=== PATIENT | male | born 1965 | race Caucasian/White ===

== ENCOUNTER → 2018-03-24 | Outpatient (REF) | payer BC ==
[2018-03-24 16:09] LABS: BLOOD UREA NITROGEN 16 MG/DL (7-18); CALCIUM LEVEL 8.4 MG/DL (8.5-10.1); CARBON DIOXIDE LEVEL 30 MEQ/L (21-32); CHLORIDE LEVEL 101 MEQ/L (98-107); CHOLESTEROL LEVEL 222 MG/DL (<200); CHOLESTEROL RISK RATIO 8.538 (<5); CREATININE FOR GFR 0.68 MG/DL (0.70-1.30); FREE T4 0.98 NG/DL (0.76-1.46); GLOMERULAR FILTRATION RATE > 60.0 (>56); GLUCOSE, FASTING 89 MG/DL (70-100); HDL CHOLESTEROL 26 MG/DL (>40); NON-HDL-C 196 MG/DL; POTASSIUM SERUM 4.3 MEQ/L (3.5-5.1); SODIUM LEVEL 137 MEQ/L (136-145); THYROID STIMULATING HORMONE 0.589 uIU/ML (0.358-3.740); TRIGLYCERIDES LEVEL 428 MG/DL (<150)
[2018-03-24 16:11] LABS: FOLATE 19.1 NG/ML; VITAMIN B12 LEVEL 969 PG/ML
[2018-03-24 16:14] LABS: HEMOGLOBIN A1c 5.9 %
[2018-03-24 16:50] LABS: HEPATITIS C VIRUS ABY INDEX 0.1 INDEX (<0.8)
== END ==
LOC: M SFHCPLAZ 14:18
DX: R63.1 Polydipsia (principal); F17.200 Nicotine dependence, unspecified, uncomplicated; Z11.59 Encounter for screening for other viral diseases; R53.83 Other fatigue; G62.9 Polyneuropathy, unspecified

== ENCOUNTER → 2018-05-16 | Outpatient (CLI) | payer BC ==
--- NOTE | 2018-05-16 08:03 | REP ---
Abdominal aorta ultrasound: Abdominal Aortic Measurements are as follows: Proximal the 2.7 cm AP 3.2 cm TRV Renal Artery Level 2.5 cm AP 3.0 cm TRV Mid Aorta 4.5 cm AP 4.7 cm TRV Distal Aorta 3.1 cm AP 3.0 cm TRV R Iliac Artery 1.2 cm AP 1.1 cm TRV L Iliac Artery 1.3 cm AP 1.4 cm TRV Comparison is the abdomen and pelvis CT dated 08/01/2008. There is an infrarenal abdominal aortic aneurysm measuring 4.5 x 4.7 cm. On the comparison CT. This measured 3.5 x 3.7 cm. The distal aorta above the bifurcation is ectatic measuring 3.1 x 3.0 cm. The bifurcation is obscured from bowel gas and likely atheromatous calcification. The right and left iliac arteries are ectatic. Impression: Infrarenal abdominal aortic aneurysm as described. Ectasia of the distal aorta and of the right and left iliac arteries. The bifurcation is obscured as described. Electronically Signed by Janes Dooley MD 05/16/2018 07:54 A
== END ==
LOC: M RAD 06:42
PROVIDERS: ATTEND Internal Medicine
DX: I77.811 Abdominal aortic ectasia (principal); I71.4 Abdominal aortic aneurysm, without rupture; F17.200 Nicotine dependence, unspecified, uncomplicated

== ENCOUNTER → 2018-06-13 | Outpatient (CLI) | payer BC ==
--- NOTE | 2018-06-13 15:53 | PFTRPT ---
Site: [facility], [address] [place], [place], [address] ID: [id number] Name: ANTONELLA MURRAY Visit Date: 06/13/2018 Second ID: [id number] Referring Doctor: Roxanne North DO Reviewing Doctor: Jose A Murrell MD Intelligence Manager: Johan CROUCH RRT Age: 52 : 1965 Sex: Male Race: Height: 74.00 Inches Weight: 155.00 Lbs BSA: 1.95 Order IDs: [id number] Requested Test(s): <RESP-PFT.DLCO> Diagnosis: F17.200 test appear to be valid, although the ATS standard for "end of test" was not met. Pt was given four puffs of albuterol for postbronchodilator. Review Status: Not Reviewed Pre-Bronch Post-Bronch Pred Actual %Pred Actual %Chng SPIROMETRY FVC (L) 5.63 4.94 87 5.24 6 FEV1 (L) 4.31 2.84 65 3.00 5 FEV1/FVC (%) 77 58 74 57 FEF 25% (L/sec) 7.30 4.18 57 4.45 6 FEF 50% (L/sec) 4.04 1.72 42 1.90 10 FEF 75% (L/sec) 1.49 0.49 33 0.63 28 FEF 25-75% (L/sec) 3.63 1.40 38 1.53 9 FEF Max (L/sec) 10.51 4.84 46 6.52 34 FIVC (L) 4.84 5.22 7 FIF 50% (L/sec) 4.86 5.96 122 4.71 -20 FIF Max (L/sec) 6.81 5.00 -26 MVV (L/min) 161 108 67 Expiratory Time (sec) 8.10 8.73 7 Back Extrap Vol (L) 0.12 0.08 -31 Time To FEFmax (sec) 0.140 0.092 -34 LUNG VOLUMES SVC (L) 5.43 5.12 94 IC (L) 3.71 3.16 85 ERV (L) 1.72 1.96 114 TGV (L) 4.07 5.58 136 RV (Pleth) (L) 2.35 3.61 153 TLC (Pleth) (L) 7.78 8.73 112 RV/TLC (Pleth) (%) 31 41 133 DIFFUSION DLCOunc (ml/min/mmHg) 31.34 14.71 46 DL/VA (ml/min/mmHg/L) 4.03 2.04 50 VA (L) 7.78 7.23 92 BHT (sec) 9.95 IVC (L) 4.93 TLC (SB) (L) 7.38 AIRWAYS RESISTANCE Raw (cmH2O/L/s) 1.45 1.45 100 Gaw (L/s/cmH2O) 1.03 0.69 67 sRaw (cmH2O*s) 4.76 8.72 183 sGaw (1/cmH2O*s) 0.20 0.12 57
== END ==
LOC: M CARPUL 15:13
PROVIDERS: ATTEND Internal Medicine
DX: F17.200 Nicotine dependence, unspecified, uncomplicated (principal)

== ENCOUNTER → 2018-07-13 | Outpatient (REF) | payer BC ==
[2018-07-13 16:34] LABS: C REACTIVE PROTEIN QUANTITATIV 1.43 MG/DL (0.00-0.30); CPK CREATINE PHOSPHOKINASE 703 U/L (39-308); LDH LACTATE DEHYDROGENASE 337 U/L (87-241); TOTAL PROTEIN 7.7 GM/DL (6.4-8.2)
[2018-07-18 09:41] LABS: ALBUMIN % 49.4 % (55.8-66.1); ALPHA-1-GLOBULIN % 5.2 % (2.9-4.9); ALPHA-2-GLOBULINS 0.94 GM/DL (0.42-0.99); ALPHA-2-GLOBULINS % 12.2 % (7.1-11.8); BETA-1-GLOBULINS 0.48 GM/DL (0.28-0.60); BETA-1-GLOBULINS % 6.2 % (4.7-7.2); BETA-2-GLOBULINS 0.51 GM/DL (0.19-0.55); BETA-2-GLOBULINS % 6.6 % (3.2-6.5); GAMMA GLOBULIN % 20.4 % (11.1-18.8); GAMMA GLOBULINS 1.57 GM/DL (0.65-1.58)
== END ==
LOC: M SFHCPLAZ 13:38
DX: R29.898 Other symptoms and signs involving the musculoskeletal system (principal)

== ENCOUNTER → 2018-11-23 | Outpatient (REF) | payer BC | LOC: M SFHCPLAZ 14:33 | DX: R29.898 Other symptoms and signs involving the musculoskeletal system (principal); E78.2 Mixed hyperlipidemia ==

== ENCOUNTER → 2018-11-28 | Outpatient (CLI) | payer BC ==
--- NOTE | 2018-11-28 18:37 | REP ---
Clinical: Abdominal aortic aneurysm. Comparison: 05/16/2018. Technique: Real time damico scale ultrasound examination using curved array transducer. Findings: Atherosclerotic changes are appreciated and a mid to distal abdominal aortic aneurysm measures approximately 5.0 x 5.5 cm transverse diameter and 9.5 cm in craniocaudal length extending from the level of the renal arteries through the bifurcation to common iliac arteries. Mural thrombus is noted with a residual patent lumen measuring 2.8 x 4.2 cm maximal diameter. Proximal aorta: 2.5 x 4.2 cm Aorta and renal arteries: 3.4 x 3.3 cm Mid aorta: 5.0 x 5.5 cm Distal aorta: 2.9 x 5.4 cm Right common iliac artery: 2.9 x 3.8 cm Left common iliac artery: 2.1 x 1.9 cm Impression: Infrarenal abdominal aortic aneurysm Electronically Signed by Mulugeta Brown MD 11/28/2018 06:28 P
== END ==
LOC: M RAD 09:08
PROVIDERS: ATTEND Internal Medicine
DX: I71.4 Abdominal aortic aneurysm, without rupture (principal)

== ENCOUNTER → 2018-11-30 | Outpatient (REF) | payer BC | LOC: M SFHCPLAZ 15:51 | DX: R29.898 Other symptoms and signs involving the musculoskeletal system (principal); Z53.9 Procedure and treatment not carried out, unspecified reason ==

== ENCOUNTER → 2018-12-04 | Outpatient (CLI) | payer BC | LOC: M RAD 16:22 | PROVIDERS: ATTEND Internal Medicine | DX: R29.898 Other symptoms and signs involving the musculoskeletal system (principal); Z53.9 Procedure and treatment not carried out, unspecified reason ==

== ENCOUNTER → 2018-12-18 | Outpatient (CLI) | payer BC ==
[2018-12-18 16:09] LABS: ALBUMIN 3.4 GM/DL (3.2-5.2); ALT/SGPT 55 U/L (12-78); BILIRUBIN,TOTAL 0.3 MG/DL (0.2-1.0); BLOOD UREA NITROGEN 20 MG/DL (7-18); C REACTIVE PROTEIN QUANTITATIV 0.62 MG/DL (0.00-0.30); CALCIUM LEVEL 8.6 MG/DL (8.5-10.1); CARBON DIOXIDE LEVEL 30 MEQ/L (21-32); CHLORIDE LEVEL 105 MEQ/L (98-107); CHOLESTEROL LEVEL 160 MG/DL (<200); CHOLESTEROL RISK RATIO 6.153 (<5); CPK CREATINE PHOSPHOKINASE 653 U/L (39-308); CREATININE FOR GFR 0.71 MG/DL (0.70-1.30); GLOMERULAR FILTRATION RATE > 60.0 (>56); GLUCOSE, FASTING 96 MG/DL (70-100); HDL CHOLESTEROL 26 MG/DL (>40); LDH LACTATE DEHYDROGENASE 266 U/L (87-241); LDL CHOLESTEROL 60 MG/DL (<100); NON-HDL-C 134 MG/DL; SODIUM LEVEL 140 MEQ/L (136-145); TOTAL PROTEIN 7.3 GM/DL (6.4-8.2); TRIGLYCERIDES LEVEL 370 MG/DL (<150)
[2018-12-21 00:06] LABS: ALDOLASE 16.3 U/L (3.3-10.3); ANA (HEP2) Negative (.); ANTI JO-1 ANTIBODIES <0.2 AI (0.0-0.9); RNP ANTIBODY < 0.2 AI (0.0-0.9); SMITHS ANTIBODY < 0.2 AI (0.0-0.9)
== END ==
LOC: M LAB 15:16
PROVIDERS: ATTEND Internal Medicine
DX: R29.898 Other symptoms and signs involving the musculoskeletal system (principal)

== ENCOUNTER → 2018-12-18 | Outpatient (REF) | payer BC | LOC: M SFHCPLAZ 14:59 | DX: R29.898 Other symptoms and signs involving the musculoskeletal system (principal); F17.200 Nicotine dependence, unspecified, uncomplicated; E78.2 Mixed hyperlipidemia; I71.4 Abdominal aortic aneurysm, without rupture; J43.9 Emphysema, unspecified; R73.03 Prediabetes ==

== ENCOUNTER → 2018-12-20 | Outpatient (CLI) | payer BC ==
[~2018-12-20] MED LIST: ISOVUE-370 76% 100ML VIAL (Q9967) As Ordered ONE
--- NOTE | 2018-12-21 07:04 | REP ---
Clinical: Evaluate for abdominal aortic aneurysm. Technique: Axial angiographic images from the lung bases to the pubic symphysis using 100 ml Isovue 370 intravenous contrast material with images obtained in arterial phase of enhancement. Coronal and sagittal re-formations along with 3-D volume rendered re-formations of the abdominal aorta and major branch vessels. Comparison: 08/01/2008. Findings: There is a moderately thrombosed infrarenal abdominal aortic aneurysm with intimal calcifications and mural thrombus extending into the right common iliac artery terminating at the bifurcation to internal/external iliac arteries. Aneurysm measures 4.6 cm maximal diameter and originates approximately 3.5 cm below the inferior-most right renal artery. Patent aortic lumen measures approximately 3.3 cm maximal diameter. Aneurysm extends into the right common iliac artery measures approximately 3.1 cm maximal diameter and again appears partially thrombosed with patent lumen measuring approximately 1.9 cm maximal diameter. Aneurysmal length in total measures approximately 15.5 cm with the aortic component measuring 8.8 cm to the bifurcation followed by approximately 7 cm length aneurysm into the right iliac artery. There is suggestion for a subtle dissection along the right side of the patent aortic lumen originating approximately L3-4 level. 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 The celiac axis, superior mesenteric artery, solitary left and dual right renal arteries appear normal and without stenosis or atherosclerotic disease at their origins. The inferior mesenteric artery originates at the level of the aortic aneurysm but appears patent and normal. Atherosclerotic changes extend into the bilateral common iliac arteries and through the bilateral common femoral arteries to the level of the popliteal arteries without evidence for occlusion but small subtle areas of narrowing cannot be excluded. Three-vessel runoff is noted to the level of the mid calf bilaterally and is poorly evaluated distal to this level. Liver, spleen, pancreas, gallbladder, bilateral adrenal glands and kidneys appear normal in arterial phase enhancement. 9 mm cortical based right renal cyst identified. The enteric system is without obstruction or acute inflammatory process. Normal terminal ileum and appendix identified in the right lower quadrant. Sigmoid diverticula noted without acute diverticulitis. Pelvis demonstrates normal bladder and age appropriate prostate/seminal vesicles. Musculoskeletal structures are intact. Lung bases demonstrate chronic-appearing fiber atelectatic changes along with dependent changes. 10 mm noncalcified nodule inseparable from the right minor fissure (image 9). Impression: 1. Infrarenal partially thrombosed abdominal aortic aneurysm extending into the right common iliac artery as detailed above. There are suggestions for a subtle dissection within the aortic portion of the patent lumen. 2. A separate focal aneurysm is also identified involving the right common femoral artery as detailed above. 3. Moderate atherosclerotic changes extend into the bilateral lower extremities through the superficial femoral arteries and popliteal artery. 4. 10 mm noncalcified nodular density in the right middle lobe inseparable from the minor fissure. No prior examination is available for comparison. Consider chest CT follow-up in 3-6 months. The Electronically Signed by Mulugeta Brown MD 12/21/2018 06:56 A
== END ==
LOC: M RAD 16:23
DX: R29.898 Other symptoms and signs involving the musculoskeletal system (principal); I71.4 Abdominal aortic aneurysm, without rupture; I74.09 Other arterial embolism and thrombosis of abdominal aorta; I72.4 Aneurysm of artery of lower extremity; I70.203 Unspecified atherosclerosis of native arteries of extremities, bilateral legs; R91.1 Solitary pulmonary nodule
CPT/HCPCS: 75635; Q9967

== ENCOUNTER 2019-04-11 07:49 | Emergency (ER) | payer BC ==
[~2019-04-11] VITALS: Ht 188 cm; Wt 73.8 kg
[2019-04-11] MEDS ORDERED: SILD50TA2 (07:59)
[2019-04-11] MEDS ORDERED: ASPI81CH33 PO (07:59)
[2019-04-11] MEDS ORDERED: ROSU40TA4 PO (07:59)
[2019-04-11] MEDS ORDERED: METF-791 PO (07:59)
[2019-04-11] MEDS: IPRATROPIUM 0.5MG/ALBUTEROL 2.5MG INH SOL UD 3ML (DUONEB)(J7620) NEB PRN ×2 (09:34→09:55)
[2019-04-11 09:37] LABS: INFLUENZA A AMPLIFICATION NEGATIVE (NEGATIVE); INFLUENZA B AMPLIFICATION NEGATIVE (NEGATIVE)
[2019-04-11] MEDS ORDERED: methylPREDNISolone INJ 125 MG/2 ML VIAL (J2930) IV ONE (09:45)
[2019-04-11 09:47] LABS: BASO % 0.2 % (0.0-1.0); EOS # 0.4 10^3/uL (0.0-0.5); EOS % 4.6 % (0.0-3.0); HEMATOCRIT 40.3 % (42.0-52.0); HEMOGLOBIN 13.5 g/dl (13.5-17.5); LYMPH # 2.2 10^3/uL (1.5-5.0); LYMPH % 24.5 % (24.0-44.0); MEAN CORPUSCULAR HEMOGLOBIN 29.5 pg (27.0-33.0); MEAN CORPUSCULAR HGB CONC 33.5 g/dl (32.0-36.5); MONO # 0.7 10^3/uL (0.0-0.8); MONO % 7.4 % (0.0-5.0); NEUTROPHILS # 5.5 10^3/uL (1.5-8.5); NEUTROPHILS % 63.1 % (36.0-66.0); PLATELET COUNT, AUTOMATED 218 10^3/uL (150-450); RED BLOOD COUNT 4.58 10^6/uL (4.30-6.10); WHITE BLOOD COUNT 8.8 10^3/uL (4.0-10.0)
[2019-04-11 10:11] LABS: BLOOD UREA NITROGEN 13 MG/DL (7-18); CALCIUM LEVEL 8.2 MG/DL (8.5-10.1); CARBON DIOXIDE LEVEL 25 MEQ/L (21-32); CHLORIDE LEVEL 105 MEQ/L (98-107); CK-MB VALUE MASS 3.7 NG/ML (<3.6); CPK CREATINE PHOSPHOKINASE 242 U/L (39-308); CREATININE FOR GFR 0.59 MG/DL (0.70-1.30); GLOMERULAR FILTRATION RATE > 60.0 (>56); GLUCOSE, FASTING 88 MG/DL (70-100); MB/CK RELATIVE INDEX 1.53 (< OR =4); NT-PRO BNP 46 PG/ML (<125); POTASSIUM SERUM 3.8 MEQ/L (3.5-5.1); SODIUM LEVEL 137 MEQ/L (136-145); TROPONIN I < 0.02 NG/ML (< 0.10)
--- NOTE | 2019-04-11 10:13 | REP ---
CHEST: Two views. There is no evidence of acute infiltrate. No pleural effusion is seen. The heart is normal in size. The mediastinal silhouette is unremarkable. The visualized osseous structures are intact. IMPRESSION: No acute pulmonary disease. Electronically Signed by Janes Tidwell MD 04/11/2019 03:56 P
[2019-04-11] MEDS ORDERED: predniSONE 20 MG TAB PO ONE (10:15)
[2019-04-11] MEDS ORDERED: AZIT-12 PO (10:58)
[2019-04-11] MEDS ORDERED: PROAAER10 INH (10:58)
[2019-04-11] MEDS ORDERED: PRED20TA PO (10:58)
[2019-04-11 11:07] VITALS: BP 112/79
== END 2019-04-11 11:09 | disposition home or self-care (01) ==
LOC: M ED 07:49
DX: J44.1 Chronic obstructive pulmonary disease with (acute) exacerbation (principal); E11.9 Type 2 diabetes mellitus without complications; E78.5 Hyperlipidemia, unspecified; K21.9 Gastro-esophageal reflux disease without esophagitis; Z86.79 Personal history of other diseases of the circulatory system; F17.200 Nicotine dependence, unspecified, uncomplicated; Z79.82 Long term (current) use of aspirin; Z79.84 Long term (current) use of oral hypoglycemic drugs; Z79.899 Other long term (current) drug therapy

== ENCOUNTER → 2019-07-10 | Outpatient (CLI) | payer BC ==
[~2019-07-10] MED LIST changes: +ASPI81CH33 PO; +AZIT-12 PO; -ISOVUE-370 76% 100ML VIAL (Q9967) As Ordered ONE; +METF-838 PO; +PRED20TA PO; +PROAAER10 INH; +ROSU40TA4 PO; +SILD50TA2
[2019-07-10 12:00] LABS: BLOOD UREA NITROGEN 19 MG/DL (7-18); CREATININE FOR GFR 0.71 MG/DL (0.70-1.30); GLOMERULAR FILTRATION RATE > 60.0 (>56)
== END ==
LOC: M LAB 08:52
PROVIDERS: ATTEND Physician Assistant
DX: Z01.818 Encounter for other preprocedural examination (principal); I71.4 Abdominal aortic aneurysm, without rupture

== ENCOUNTER → 2019-07-16 | Outpatient (CLI) | payer BC ==
[~2019-07-16] MED LIST changes: +ISOVUE-370 76% 100ML VIAL As Ordered ONE
--- NOTE | 2019-07-17 07:34 | REP ---
Clinical: History of abdominal aortic aneurysm. Technique: Axial angiographic images from the thoracic inlet to the upper abdomen using 100 ml Isovue 370 intravenous contrast material (followed by CT angiography of the abdomen and pelvis). Coronal and sagittal re-formations and MIP reconstructions obtained. Findings: The thoracic aorta including branch vessels through the aortic arch are normal in appearance and caliber. There is no evidence for aneurysm or dissection. No periaortic inflammatory changes are appreciated. Heart and pericardium appear normal. Pulmonary vasculature appear normal. Lung [place] demonstrate mild/moderate scattered subpleural fibrosis without consolidation. There is a 11 mm noncalcified perifissural nodule at the confluence of the major and minor fissure (images 68 - 69). No effusion. No pneumothorax. Tracheobronchial tree is patent. Mediastinal and right hilar lymph nodes measuring up to approximately 13 mm are nonspecific. Surrounding musculoskeletal structures are intact without acute focal osseous abnormality. Impression: 1. Normal thoracic aorta and branch vessels without aneurysm or dissection. 2. 11 mm noncalcified nodule at the confluence of the major and minor fissure. No prior examinations are available for comparison. Pulmonary consultation is recommended. Short-term 3-month follow-up, PET-CT and/or biopsy may be considered. Electronically Signed by Mulugeta Brown MD 07/17/2019 07:25 A
--- NOTE | 2019-07-17 07:53 | REP ---
Clinical: Abdominal aortic aneurysm. Technique: CT angiographic images from the lung bases through the bilateral lower extremities using 100 ml Isovue 370 intravenous contrast material with coronal and sagittal re-formations and MIP reconstructions. Comparison: 12/20/2018. Findings: There is a partially thrombosed infrarenal abdominal aortic aneurysm containing moderate amount of thrombus and significant mural calcifications which originates approximately 3 cm below the renal arteries and extends into the right common iliac artery. Aneurysm measures approximately 4.8 x 4.5 cm maximal transverse and AP diameter which is unchanged from prior examination. The extension into the common iliac artery measures 3.1 cm maximal diameter and also remains essentially stable. The celiac axis, superior mesenteric artery, dual right and a solitary left renal arteries along with the inferior mesenteric artery appear normal caliber and patent. Moderate to significant atherosclerotic changes continue through the pelvic vasculature into the bilateral lower extremities. 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 The right profunda femoris artery and branch vessels appear patent. Atheromatous plaquing along the superficial femoral artery to the popliteal artery demonstrates varying degrees of stenosis without discrete occlusion. The right popliteal artery appears relatively normal relatively normal trifurcation identified to the level of the ankle at which point the vessels appear attenuated and poorly evaluated. Moderate atheromatous plaquing to the left common femoral artery and through the superficial femoral artery with varying degrees of scattered stenosis, but no discrete occlusion. Moderate atheromatous plaquing to the left popliteal arteries noted followed by a normal trifurcation to the level of the ankle where normal anterior and posterior tibial arteries are identified through the midfoot. Liver, spleen, pancreas, gallbladder, bilateral adrenal glands and kidneys appear normal. The enteric system is without obstruction at or acute inflammatory process. Moderate fecal stasis and scattered colonic diverticulosis noted. The pelvis demonstrates normal bladder and moderate prostatomegaly. No ascites. No free air. No adenopathy. Musculoskeletal structures demonstrate age-related changes without acute osseous abnormality. Impression: 1. Stable infrarenal abdominal aortic aneurysm extending into the right common iliac artery as described above. 2. Right common femoral artery aneurysm. 3. Moderate to significant mixed atherosclerotic disease through the bilateral lower extremities as described above. 4. Fecal stasis and colonic diverticulosis without acute enteric process. 5. Prostatomegaly. Electronically Signed by Mulugeta Brown MD 07/17/2019 07:44 A
== END ==
LOC: M RAD 09:30
PROVIDERS: ATTEND Surgery Vascular Surgery
DX: I71.4 Abdominal aortic aneurysm, without rupture (principal); I72.3 Aneurysm of iliac artery; I72.4 Aneurysm of artery of lower extremity; I70.203 Unspecified atherosclerosis of native arteries of extremities, bilateral legs; K57.90 Diverticulosis of intestine, part unspecified, without perforation or abscess without bleeding; N40.0 Benign prostatic hyperplasia without lower urinary tract symptoms
CPT/HCPCS: 71275; 75635; Q9967

== ENCOUNTER 2022-04-08 21:12 | Emergency (ER) | payer BC, OTHER ==
[~2022-04-08] VITALS: Ht 188 cm; Wt 72.9 kg
[~2022-04-08 21:12] MED LIST changes: -ISOVUE-370 76% 100ML VIAL As Ordered ONE
[2022-04-09] MEDS ORDERED: LIDOCAINE 2% MDV 20ML VIAL SC ONE (00:35)
[2022-04-09] MEDS ORDERED: BOOSTRIX/ADACEL VACCINE (DIPHTH/PERTUSS/ACELL/TETANUS) 0.5ML SYR IM ONE (00:50)
[2022-04-09] MEDS ORDERED: CEPH500C PO (00:56)
[2022-04-09 01:16] VITALS: BP 140/90
== END 2022-04-09 01:31 | disposition home or self-care (01) ==
LOC: M ED 21:12
DX: L03.012 Cellulitis of left finger (principal); J44.9 Chronic obstructive pulmonary disease, unspecified; E78.5 Hyperlipidemia, unspecified; K21.9 Gastro-esophageal reflux disease without esophagitis; M54.9 Dorsalgia, unspecified; F32.9 Major depressive disorder, single episode, unspecified; F17.200 Nicotine dependence, unspecified, uncomplicated; F12.10 Cannabis abuse, uncomplicated

== ENCOUNTER → 2022-04-19 | Outpatient (CLI) | payer OTHER ==
[~2022-04-19] MED LIST changes: +CEPH500C PO
== END ==
LOC: M SOG 08:00
PROVIDERS: ATTEND Orthopaedic Surgery
DX: S61.240D Puncture wound with foreign body of right index finger without damage to nail, subsequent encounter (principal); M79.89 Other specified soft tissue disorders

== ENCOUNTER 2023-06-25 11:10 | Inpatient (IN) | payer BC ==
[~2023-06-25] VITALS: Ht 188 cm; Wt 72.0 kg
[~2023-06-25 11:10] MED LIST changes: -ROSU40TA4 PO; +ROSU40TA63 PO
[2023-06-25] MEDS: NS 2,240 ML in IV 1 EA IV ONE (11:22)
[2023-06-25] MEDS ORDERED: BAYE325T13 PO (11:32)
[2023-06-25 11:34] LABS: VENOUS BASE EXCESS -4.8 (-2.0-2.0); VENOUS HCO3 20.7 MMOL/L (23.0-27.0); VENOUS O2 SATURATION 64.1 % (60.0-80.0); VENOUS PARTIAL PRESSURE CO2 39.8 mmHg (38.0-50.0); VENOUS PARTIAL PRESSURE O2 37.1 mmHg (30.0-50.0); VENOUS PH 7.333 UNITS (7.330-7.430); VENOUS STANDARD HCO3 19.8 MMOL/L; VENOUS TOTAL CO2 21.9 MMOL/L (24.0-28.0)
[2023-06-25] MEDS: cefTRIAXone SOD 2 GM in D5W MINI-BAG PLUS 50 ML IV ONE (11:37)
[2023-06-25 11:40] LABS: BASO % 0.3 % (0.0-1.0); EOS % 0.3 % (0.0-3.0); HEMATOCRIT 32.6 % (42.0-52.0); HEMOGLOBIN 10.6 g/dl (13.5-17.5); LYMPH # 1.3 10^3/uL (1.5-5.0); LYMPH % 8.4 % (24.0-44.0); MEAN CORPUSCULAR HEMOGLOBIN 27.8 pg (27.0-33.0); MEAN CORPUSCULAR HGB CONC 32.5 g/dl (32.0-36.5); MEAN CORPUSCULAR VOLUME 85.6 fl (80.0-96.0); MONO # 1.3 10^3/uL (0.0-0.8); MONO % 8.2 % (2.0-8.0); NEUTROPHILS # 12.6 10^3/uL (1.5-8.5); NEUTROPHILS % 82.2 % (36.0-66.0); PLATELET COUNT, AUTOMATED 308 10^3/uL (150-450); RED BLOOD COUNT 3.81 10^6/uL (4.30-6.10); WHITE BLOOD COUNT 15.3 10^3/uL (4.0-10.0)
[2023-06-25 11:51] LABS: INR 1.45; PROTHROMBIN TIME 17.2 SECONDS (12.5-14.5)
[2023-06-25 12:03] LABS: LIPASE 17 U/L (12-53)
[2023-06-25 12:05] LABS: ALBUMIN 2.5 G/DL (3.2-5.2); ALKALINE PHOSPHATASE 272 U/L (46-116); ALT/SGPT 71 U/L (7.0-40); AST/SGOT 86 U/L (<34); BILIRUBIN,DIRECT 0.2 MG/DL (<0.4); BILIRUBIN,TOTAL 0.5 MG/DL (0.3-1.2); BLOOD UREA NITROGEN 17 MG/DL (9-23); CALCIUM LEVEL 7.9 MG/DL (8.5-10.1); CARBON DIOXIDE LEVEL 21 MMOL/L (20-31); CHLORIDE LEVEL 103 MMOL/L (98-107); CK-MB VALUE MASS < 1.0 NG/ML (<3.6); CREATININE FOR GFR 0.85 MG/DL (0.70-1.30); GLOMERULAR FILTRATION RATE > 60.0 (>56); GLUCOSE, FASTING 135 MG/DL (60-100); POTASSIUM SERUM 5.2 MMOL/L (3.5-5.1); SODIUM LEVEL 134 MMOL/L (136-145); TOTAL PROTEIN 6.9 G/DL (5.7-8.2)
[2023-06-25 12:07] LABS: THYROID STIMULATING HORMONE 0.481 uIU/ML (0.55-4.78)
[2023-06-25 12:08] LABS: CPK CREATINE PHOSPHOKINASE 59 U/L (46-171); MB/CK RELATIVE INDEX 1.69 (< OR =4)
[2023-06-25] MEDS ORDERED: ISOVUE-370 76% 100ML VIAL As Ordered ONE (12:19)
[2023-06-25] MEDS ORDERED: HOME MED LIST COMPLETE! XX SCH (12:35)
[2023-06-25] MEDS: DIGOXIN INJ 0.5 MG/2 ML AMP IV STA ×2 (12:51→14:22)
[2023-06-25 13:06] LABS: CK-MB VALUE MASS < 1.0 NG/ML (<3.6); CPK CREATINE PHOSPHOKINASE 39 U/L (46-171); MB/CK RELATIVE INDEX 2.56 (< OR =4)
[2023-06-25 13:37] LABS: MAGNESIUM LEVEL 1.8 MG/DL (1.8-2.4)
[2023-06-25] MEDS: METOPROLOL 5 MG/5 ML VIAL IV SCH (14:30)
[2023-06-25] MEDS: METOPROLOL TART 25 MG TABLET PO ONE (15:19)
[2023-06-25] MEDS: ENOXAPARIN 100MG/1ML SYRINGE (J1650 PER 10MG) SC ONE (15:20)
[2023-06-25 15:21] LABS: BARBITURATES URINE NEGATIVE (NEGATIVE); COCAINE METABOLITE URINE NEGATIVE (NEGATIVE); METHADONE URINE NEGATIVE (NEGATIVE)
[2023-06-25 15:22] LABS: BENZODIAZEPINES URINE NEGATIVE (NEGATIVE); CANNABINOIDS URINE NEGATIVE (NEGATIVE); OPIATES URINE NEGATIVE (NEGATIVE); PHENCYCLIDINE URINE NEGATIVE (NEGATIVE)
[2023-06-25 15:25] LABS: AMPHETAMINES LEVEL URINE POSITIVE (NEGATIVE)
[2023-06-25] MEDS: ACETAMINOPHEN 500 MG TAB PO ONE (15:46)
[2023-06-25 16:29] LABS: ETHYL ALCOHOL (ETHANOL) 0.008 % (0.000-0.010)
[2023-06-25 17:37] LABS: HEMOGLOBIN A1c 5.2 % (4.0-6.0)
[2023-06-25 17:39] LABS: IRON (FE) 8 UG/DL (65-175); PERCENT SATURATION 3.9 % (19.7-50.0); TOTAL IRON BINDING CAPACITY 206 UG/DL (250-425)
[2023-06-25 17:41] LABS: FOLATE 20.63 NG/ML (>5.4); VITAMIN B12 LEVEL 948 PG/ML (211-911)
[2023-06-25 17:42] LABS: FERRITIN 168.3 NG/ML (10.5-307.3)
[2023-06-25] MEDS: diltiaZEM 125 MG in NS 100 ML IV SCH (17:48)
[2023-06-25] MEDS: NS 1,000 ML IV SCH (17:48)
[2023-06-25] MEDS: dilTIAZem 25MG/5ML VIAL IV STA (17:49)
[2023-06-25] MEDS: AZITHROMYCIN 250MG TABLET PO SCH (19:24)
[2023-06-25 21:37] VITALS: BP 101/70; TEMP 97.6; O2SAT 90
[2023-06-25 23:58] VITALS: BP 111/77; TEMP 97.5; O2SAT 90
[2023-06-26] VITALS (25 sets, daily range): BP systolic 106–132; BP diastolic 62–82; TEMP 97.7–99.8; O2SAT 89–100
[2023-06-26] MEDS: ENOXAPARIN 80MG/0.8ML SYRINGE (J1650 PER 10MG) SC SCH (04:20)
[2023-06-26 05:20] LABS: HEMATOCRIT 32.6 % (42.0-52.0); HEMOGLOBIN 10.5 g/dl (13.5-17.5); MEAN CORPUSCULAR HEMOGLOBIN 27.3 pg (27.0-33.0); MEAN CORPUSCULAR HGB CONC 32.2 g/dl (32.0-36.5); MEAN CORPUSCULAR VOLUME 84.9 fl (80.0-96.0); PLATELET COUNT, AUTOMATED 346 10^3/uL (150-450); RED BLOOD COUNT 3.84 10^6/uL (4.30-6.10); WHITE BLOOD COUNT 16.2 10^3/uL (4.0-10.0)
[2023-06-26 05:53] LABS: ALBUMIN 2.1 G/DL (3.2-5.2); ALKALINE PHOSPHATASE 219 U/L (46-116); ALT/SGPT 207 U/L (7.0-40); AST/SGOT 223 U/L (<34); BILIRUBIN,TOTAL 0.4 MG/DL (0.3-1.2); BLOOD UREA NITROGEN 23 MG/DL (9-23); CALCIUM LEVEL 7.5 MG/DL (8.5-10.1); CARBON DIOXIDE LEVEL 22 MMOL/L (20-31); CHLORIDE LEVEL 105 MMOL/L (98-107); CHOLESTEROL LEVEL 133 MG/DL (<200); CHOLESTEROL RISK RATIO 7.47 (<5); GLOMERULAR FILTRATION RATE > 60.0 (>56); GLUCOSE, FASTING 99 MG/DL (60-100); HDL CHOLESTEROL 17.8 MG/DL (>40); LDL CHOLESTEROL 86.4 MG/DL (<100); MAGNESIUM LEVEL 1.9 MG/DL (1.8-2.4); NON-HDL-C 115.2 MG/DL; POTASSIUM SERUM 4.3 MMOL/L (3.5-5.1); SODIUM LEVEL 135 MMOL/L (136-145); TOTAL PROTEIN 6.1 G/DL (5.7-8.2); TRIGLYCERIDES LEVEL 144 MG/DL (<150)
[2023-06-26] MEDS: guaiFENesin ER TABLET 600 MG TAB PO SCH (09:13)
[2023-06-26] MEDS: ASPIRIN 81MG CHEW TABLET PO SCH (09:13)
[2023-06-26] MEDS: PANTOPRAZOLE 40MG TAB (PROTONIX) PO SCH (09:13)
[2023-06-26] MEDS: METOPROLOL TART 12.5 MG PER 1/2 TAB PO SCH (09:13)
[2023-06-26] MEDS: cefTRIAXone SOD 1 GM in D5W MINI-BAG PLUS 50 ML IV SCH (14:07)
[2023-06-26] MEDS: COLCHICINE 0.6 MG TABLET PO SCH (20:35)
[2023-06-27] VITALS (17 sets, daily range): BP systolic 91–125; BP diastolic 56–71; TEMP 97.2–100.2; O2SAT 93–98
[2023-06-27 07:07] LABS: HEMATOCRIT 28.8 % (42.0-52.0); HEMOGLOBIN 9.3 g/dl (13.5-17.5); MEAN CORPUSCULAR HEMOGLOBIN 27.5 pg (27.0-33.0); MEAN CORPUSCULAR HGB CONC 32.3 g/dl (32.0-36.5); MEAN CORPUSCULAR VOLUME 85.2 fl (80.0-96.0); PLATELET COUNT, AUTOMATED 321 10^3/uL (150-450); RED BLOOD COUNT 3.38 10^6/uL (4.30-6.10); WHITE BLOOD COUNT 9.3 10^3/uL (4.0-10.0)
[2023-06-27 07:47] LABS: ALKALINE PHOSPHATASE 194 U/L (46-116); ALT/SGPT 132 U/L (7.0-40); AST/SGOT 83 U/L (<34); BILIRUBIN,TOTAL 0.2 MG/DL (0.3-1.2); BLOOD UREA NITROGEN 15 MG/DL (9-23); CALCIUM LEVEL 7.3 MG/DL (8.5-10.1); CARBON DIOXIDE LEVEL 25 MMOL/L (20-31); CHLORIDE LEVEL 107 MMOL/L (98-107); CREATININE FOR GFR 0.71 MG/DL (0.70-1.30); GLOMERULAR FILTRATION RATE > 60.0 (>56); GLUCOSE, FASTING 121 MG/DL (60-100); MAGNESIUM LEVEL 1.8 MG/DL (1.8-2.4); POTASSIUM SERUM 3.6 MMOL/L (3.5-5.1); SODIUM LEVEL 137 MMOL/L (136-145); TOTAL PROTEIN 5.8 G/DL (5.7-8.2)
[2023-06-27] MEDS: ENOXAPARIN 40MG/0.4ML SYRINGE (J1650 PER 10MG) SC SCH (08:27)
[2023-06-27] MEDS: METOPROLOL TART 12.5 MG PER 1/2 TAB PO ONE (08:45)
[2023-06-27] MEDS: ASPIRIN 325 MG TAB PO ONE (09:48)
[2023-06-27] MEDS ORDERED: COLC0.6T47 PO (10:12)
[2023-06-27] MEDS ORDERED: PANT40TA29 PO (10:12)
[2023-06-27] MEDS ORDERED: ASPI32ECTA PO (10:12)
[2023-06-27] MEDS ORDERED: AZIT-12 PO (10:12)
[2023-06-27] MEDS ORDERED: CEFD1CAP9 PO (10:12)
[2023-06-27] MEDS ORDERED: METO1TAB87 PO (10:12)
[2023-06-27] MEDS: POTASSIUM CHLORIDE 10MEQ SR TABLET PO ONE (10:49)
[2023-06-27] MEDS ORDERED: ASPI-527 PO (12:33)
== END 2023-06-27 12:42 | disposition home or self-care (01) | DRG 201 ==
LOC: EDBD 11:10 → M ED 11:10 → M ED INP 16:27 → M PCU 21:16
PROVIDERS: ADMIT Preventive Medicine Undersea and Hyperbaric Medicine; ATTEND Preventive Medicine Undersea and Hyperbaric Medicine
DX: I48.92 Unspecified atrial flutter (principal); I31.39 Other pericardial effusion (noninflammatory); J18.9 Pneumonia, unspecified organism; I95.9 Hypotension, unspecified; E86.0 Dehydration; N13.30 Unspecified hydronephrosis; I71.40 Abdominal aortic aneurysm, without rupture, unspecified; D64.9 Anemia, unspecified; J44.9 Chronic obstructive pulmonary disease, unspecified; F17.200 Nicotine dependence, unspecified, uncomplicated; Z79.899 Other long term (current) drug therapy; Z79.82 Long term (current) use of aspirin